=== PATIENT | female | born 1955 | race Caucasian/White ===

== ENCOUNTER 2024-11-11 12:35 | Emergency (ER) | payer OTHER, SELFPAY ==
[2024-11-11 12:42] VITALS: BP 153/88
--- NOTE | 2024-11-11 14:07 | ED.MUSCINJ ---
HPI-Injury
General
Chief Complaint: Fall
Source: patient
Exam Limitations: none
Time Seen by Provider: 11/11/24 13:20
Nursing documentation reviewed up to this point in time: agreed with
History of Present Illness-Injury
Is this injury a work related problem?: Yes
Is pt an associate of [facility]?: No
Initial Injury comments:
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 She fell down 12-14 steps, denies hitting head, denies neck or back pain. Onlooker helped her up and she was able to
ambulate. States 'soreness' not significant pain right side ribs and posterior upper right arm. Scrape left kneecap and local bruise and mild abrasion lower leg just below the knee. The most pain is outer left ankle with mild local swelling.
Not anticoagulated, no clinically significant PMHX
Past History
Past History
ED Past Medical History: Hypothyroidism, Psychiatric (bipolar affective disorder) and Other (corneal abrasions); Negative Seizures
ED Past Surgical History: Tonsilectomy; Negative Cardiac
Social History
Tobacco: Non-smoker
Alcohol: None
Drug: None
Personal: Single
Living: alone
Employment: Employed (psychiatric care worker)
Family History
Family History: Cancer and Other (negative for epilepsy)
Review of Systems
Review of Systems
Allergies reviewed?: Yes
All Other Systems: ROS reviewed and negative except as documented in HPI and ROS
Respiratory: Denies trouble breathing
Cardiac: Denies chest pain
ABD/GI: Denies abdominal pain
Musculoskeletal: Reports other (pain left ankle. Sore right upper arm and right lateral ribs); Denies neck pain or back pain
Skin: Reports no symptoms
Neurological: Reports no symptoms
Phy Exam
Physical Exam
Physical Exam:
GENERAL: No acute distress. A&Ox3.
CONSTITUTIONAL: Afebrile.
EYES: clear, conjunctivae normal
ENMT: moist mucus membranes, Pharynx nl
RESPIRATORY: Regular respirations, nonlabored, lungs clear.
CARDIOVASCULAR: Regular rate and rhythm, no murmurs, no rubs.
GI: Soft, nontender, normal BS
MUSCULOSKELETAL: No spinal bony tenderness. No significant tenderness of ribs, UE's or RLE. Left ankle with mild swelling and tenderness laterally. Moves with ease. Well perfused.
SKIN: Warm, dry, pink
PSYCH: Normal mood and affect. Well kept, interactive and appropriate
NEUROLOGIC: Awake, alert and oriented. No focal neurological deficits
Injury Course
Orders/Labs/Results
Orders:
Orders
11/11/24 13:31
Ankle, left 3 view CR [CR Ankle - Left Min 3 Views ] Urgent
Comment:
Reason For Exam: pain laterally after fall
11/11/24 15:03
Keenan Wrap Left-Treatment ONCE
MDM/Problems Addressed
MDM/Problems Addressed:
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 She fell down 12-14 steps, denies hitting head, denies neck or back pain. Onlooker helped her up and she was able to
ambulate. States 'soreness' not significant pain right side ribs and posterior upper right arm. Scrape left kneecap and local bruise and mild abrasion lower leg just below the knee. The most pain is outer left ankle with mild local swelling.
Not anticoagulated, no clinically significant PMHX
No significant bony tenderness of ribs, other extremities. Neck and back non tender. No indication for further imaging.
3:00 p.m.
L ankle: no fracture
Keenan wrap applied and pt ambulating comfortably
*Critical Care Note
Total Time (30-74mins, 75-104mins- exclusive of procedures): Not Applicable
ED Attending Note
-
Portions of this chart may have been created with voice recognition software.� Occasional wrong word or��sound alike� substitutions may have occurred due to the inherent limitations of voice recognition software.
Discharge Plan
Departure
Patient Disposition: Home (Routine Discharge)
Date of Disposition: 11/11/24
Time of Disposition: 15:04
Patient with high blood pressure during this ER visit?: No
Condition: Good
Discharge Problem:
Fall down stairs, Left ankle sprain, Abrasion of left knee
Instructions: Skin Abrasions (DC), Ankle sprain - ED discharge instructions
Prescriptions:
No Action
gabapentin [Neurontin] 600 MG tablet
600 mg PO QID
olanzapine 2.5 MG tablet
2.5 mg PO HS
levothyroxine [Synthroid] 100 MCG tablet
100 mcg PO DAILY
fluoxetine 20 MG capsule
20 mg PO DAILY
Buspar
15 mg PO TID
Patient Comments:
Patient thinks the dose is 15mg TID
hydrocodone-acetaminophen 5 MG/500 MG tablet
1 tab PO .Q4-6HPRN PRN (Reason: PAIN) Qty: 15 0RF
alprazolam 1 MG tablet
1 mg PO BID
dorzolamide 1 DROP drops
1 drp BOTH EYES BID
dexamethasone 4 MG tablet
4 mg PO Q12 Qty: 10 0RF
ciprofloxacin HCl 0.3 % drops
1 drp ophthalmic (eye) ONCE Qty: 10 0RF
Rx Instructions:
Instill 2 drops into right eye q 15 minutes for the first 6 hours then 2 drops in affected eye q 30 min. for the remainder the first day. On day 2 instill 2 drops in the right eye q 1 hr. On days 3-14 instill 2 drops into affected eye q 4
hours.
benzonatate 200 mg capsule
200 mg PO TID PRN (Reason: Cough) Qty: 20 0RF
Referrals:
Your, Worker's comp provider [Other] - As needed
Marino Medrano MD [Family Provider] -
Stand Alone Forms: Return to Work
Activity Restrictions/Additional Instructions:
As we discussed, your ankle x-ray shows nothing is broken. Wear the Keenan wrap as needed for comfort, support, swelling.
You may be more stiff and sore for the next couple of days as this is not unusual after a fall
See your Worker's Comp. provider if your ankle is not much better within the next 1 to 2 weeks.
Tylenol or ibuprofen as needed for pain.
Interventions
Interventions:
*Risk Screen - Suicide Last Done: 11/11/24 12:42
*Neglect/Abuse Screening Last Done: 11/11/24 12:42
*Nursing Disposition Last Done: 11/11/24 15:08
ED-Musculoskeletal Assessment Last Done: 11/11/24 13:13
ED- Neurological Assessment Last Done: 11/11/24 13:13
ED-Skin Assessment Last Done: 11/11/24 13:13
Discharge Date and Time
Discharge Date/Time: 11/11/24 18:32
Print Language: THAI
== END 2024-11-11 18:32 | disposition home or self-care (01) ==
LOC: EMR 12:35
PROVIDERS: EMERGENCY PHYSICIAN Emergency Medicine; FAMILY PHYSICIAN Internal Medicine
DX: S80.212A Abrasion, left knee, initial encounter (principal); S93.402A Sprain of unspecified ligament of left ankle, initial encounter; W10.9XXA Fall (on) (from) unspecified stairs and steps, initial encounter; E03.9 Hypothyroidism, unspecified; F31.9 Bipolar disorder, unspecified
CPT/HCPCS: 99284; 73610